=== PATIENT | male | born 1965 | race Caucasian/White ===

== ENCOUNTER 2020-05-04 16:11 | Outpatient (REF) | payer BC, SELFPAY ==
[2020-05-04 18:11] LABS: Carbamazepine Tegretol 4.5 mcg/mL (5.0-12.0)
== END 2020-05-04 16:12 | disposition home or self-care (01) ==
LOC: HO.LAB 16:11
PROVIDERS: Visit Provider Psychiatry & Neurology Neurology
DX: G40.209 Localization-related (focal) (partial) symptomatic epilepsy and epileptic syndromes with complex partial seizures, not intractable, without status epilepticus (principal)
CPT/HCPCS: 80156

== ENCOUNTER 2021-05-05 16:53 | Outpatient (REF) | payer BC, SELFPAY ==
[2021-05-05 17:06] LABS: MANUAL DIFF FLAG NO
[2021-05-05 18:17] LABS: Anion Gap 12 (12-20); Carbon Dioxide 26 mmol/L (22-29); Chloride 109 mmol/L (96-108); Potassium 4.6 mmol/L (3.3-5.1); Sodium 142 mmol/L (135-145)
[2021-05-05 18:31] LABS: Basophils Percent Auto 0.4 % (0-2); Eosinophils Absolute Auto 0.1 X10*3/uL (0.0-0.4); Hematocrit 42.3 % (42-52); Hemoglobin 15.1 g/dl (14.0-18.0); Imm Gran Abs Auto 0.02 X10*3/uL (0.00-0.03); Imm Gran Pct Auto 0.4 % (0.0-0.4); Lymphocytes Absolute Auto 0.9 X10*3/uL (1.2-4.9); Lymphocytes Percent Auto 18.9 % (20-40); Mean Corpuscular HGB Conc 35.7 g/dl (31.0-36.0); Mean Corpuscular Hemoglobin 32.5 pg (27.0-33.0); Mean Platelet Volume 9.8 fL (9.4-12.4); Monocytes Absolute Auto 0.4 X10*3/uL (0.1-1.2); Monocytes Percent Auto 7.4 % (2-11); Neutrophils Absolute Auto 3.3 X10*3/uL (2.0-8.3); Neutrophils Percent Auto 69.9 % (45-73); Platelet Count 164 X10*3/uL (160-400); Red Blood Count 4.65 X10*6/uL (4.60-5.80); Red Cell Distribution Width 11.8 % (11.0-16.0); White Blood Count 4.7 X10*3/uL (4.8-10.8)
[2021-05-05 18:38] LABS: Carbamazepine Tegretol 7.5 mcg/mL (5.0-12.0)
== END 2021-05-05 16:54 | disposition home or self-care (01) ==
LOC: HO.LAB 16:53
PROVIDERS: Visit Provider Psychiatry & Neurology Neurology
DX: G40.209 Localization-related (focal) (partial) symptomatic epilepsy and epileptic syndromes with complex partial seizures, not intractable, without status epilepticus (principal)
CPT/HCPCS: 36415; 80051; 80156; 85025

== ENCOUNTER 2025-02-10 11:14 | Outpatient (AMB) | payer OTHER, SELFPAY ==
--- NOTE | 2025-02-10 11:17 | A.OFFVIS_ITS ---
Intake Visit Reasons: 6 month f/u Allergies No Known Allergies Allergy (Verified 02/08/25 11:28) Medication List - Last Reconciled 02/10/25 by Dominic Rainey MD acetaminophen ER (Pain Relief (acetaminophen)) 650 mg PO Q8H amlodipine-benazepril 10-20 mg 1 cap PO DAILY atorvastatin 80 mg PO DAILY carbamazepine 300 mg PO TID gabapentin 300 mg PO TID melatonin 10 mg PO BEDTIME PRN omeprazole 20 mg PO DAILY primidone 50 mg PO BID sertraline 100 mg PO DAILY warfarin 10 - 12.5 mg PO DAILY HPI Comments Details: 2. 3. This is a 59-year-old man with a history of stroke, seizures, DVT and tremors. No Sz or stroke like Sx. Balance is poor but no falls. Uses a walker outside. Tremors are about the same or at times a bit worse.. Notices tremors when eating or drinking, that can cause functional impairmen, also with writing.. No difficulty swallowing. Woke with low back pain and right leg weakness after repetitive yard work in mid-11/2023, seen at [facility]. Following with [facility]. Had a hip inj a week ago that seems to have relieved the pain. Had a left calf DVT .? Admitted to [facility] on 01/10/2023 for stroke-like symptoms with slurred speech, f acial droop, left hemiparesis, and had thrombectomy. Last seizure 04/25/2021, was looking in mirror and lost bladder control, did not pass out. Seizure 01/05/2020 without warning, turned white, no tongue bite or incontinence, came to in chair. Seizure 09/2015. Hit curb and on another occasion unplowed snow without damage to car. One was early night and other was early month. Hz of seizures diagnosed at age 21 (1985), well controlled with CBZ. Stopped CBZ in , restarted. Spells with tremendous sense of fear daily. Noted to stare during it, some caressing of knee, does not respond. Sometimes he sees like a video with sense of fear. 01/15 EEG WNL 05/01/21 Teg 7.5 MRI Brain at [facility] 01/13/2023: R MCA territory infarction, most confluent in the R basal ganglia with associated hemorrhagic conversion. There is partial effacement of the R lateral ventricle, but no midline shift. [facility] Medical History (Updated 02/10/25 @ 11:39 by Dominic Rainey MD) Benign familial tremor Stroke Complex partial seizures Review of Systems Const Details: General/Constitutional:? Change in appetitedenies.? Chillsdenies.? Fatiguedenies.? Feverdenies.? Weight gaindenies.? Weight lossdenies. ???Sleep:? Difficulty getting to sleepdenies.? Difficulty maintaining sleepadmits.? Urge to move legsdenies.? Teeth grindingdenies.? Shouting or Kicking during sleep denies.? Abnormal behavior during sleepdenies.? Excessive sleepdenies.? Snoring denies.? Daytime sleepinessdenies. ???Respiratory:? Shortness of breathdenies.? Chest paindenies.? Coughdenies. ???Cardiovascular:? Chest pain at restdenies.? Chest pain with exertiondenies.? Claudicationdenies .? Dizzinessdenies.? Fluid accumulation in the legsdenies.? Irregular heartbeat denies.? Palpitationsdenies. ???Gastrointestinal:? Abdominal paindenies.? Constipationdenies.? Diarrheadenies.? Difficulty swallowingdenies.? Heartburndenies.? Nauseadenies.? Rectal bleedingdenies. ???Genitourinary:? Frequent urinationdenies.? Urgencydenies.? Incontinencedenies.? Erectile Dysfunctiondenies. ???Musculoskeletal:? Neck paindenies.? Back paindenies.? Muscle achesdenies.? Painful jointsdenies.? Sciaticadenies.? Weaknessdenies. ???Neurologic:? Difficulty swallowingdenies.? Balance difficultydenies.? Coordinationnormal.? Difficulty speakingdenies.? Dizzinessdenies.? Faintingdenies.? Gait abnormality denies.? Headachedenies.? Loss of strengthdenies.? Loss of use of extremity denies.? Low back paindenies.? Memory lossdenies.? Seizuresadmits.? Ticsdenies.? Tingling/Numbnessdenies.? Transient loss of visiondenies.? Tremoradmits. ???Psychiatric:? Anxietydenies.? Auditory/visual hallucinationsdenies.? Delusionsdenies.? Depressed moodadmits.? Stressorsdenies.? Substance abusedenies.? Suicidal thoughtsdenies. Physical Exam Neuro Other: Neurological: Abnormal neurological findings:??slight left facial angle of mouth droop . Subtle left pronation drift. Left side 5-/5. Slight slow speech. Minimal left hand tremor on finger to nose only, not on sustained pressure. Walking with walker.?Mental Status:??alert and oriented X 3,?Normal attention, orientation, memory and affect.?Cranial Nerves:??Pupils are equal, round and reactive to light. Fundoscopy shows normal disc bilaterally. External occular muscles are intact. Visual mo are full, no ptosis. Face is asymmetrical, left facial weakness/ droop. Facial sensations are normal. Tongue protrudes in midline. Palate elevates symmetrically. Shoulder shrugging is normal..?Motor Examination:??Normal muscle tone, bulk and strength,?No atrophy or fasciculations,?No drift of the extended upper extremities,?Deep tendon reflexes are 2+?,?Plantars are flexor?.?Straight Leg Raising:??90 degrees.?Sensory Exam:??Normal light touch, temperature, pinprick, vibration and joint-position sensations?,?Rhomberg sign is absent.?Coordination:??no ataxia,?no titubation,?tmvpcl-ra-jbnj, rdqd-znnh-rqya test and rapid alternating movements were normal.?Gait Exam:??walking with walker.?Cerebellar Signs:??Vigfgt-vw-ylyq and enkw-nf-xawp is normal,?no dysdiadochokinesia?.?Extrapyramidal Syste m:??Tremor as above, no?rigidity with normal facial expressions,?No bradykinesia, no bradyphrenia. Normal arm swing and posture. No propulsion or retropulsion.?Speech:??Normal,?no dysphasia or dysarthria..? Mini Mental Status Exam: Level of Consciousness:??Alert.?Orientation:??Knows correct year, month, date, day and season,?Knows correct city, county and state. Knows correct location and floor.?Registration:??Able to register 3 objects.?Attention:??Serial 7's performed accurately.?Recall:??Able to recall 3 out of 3 objects.?Language:??Normal spontaneous speech, fluency, repetition,naming, comprehension, reading and writing.?Total Score:??30/30.? General Examination: GENERAL APPEARANCE:??normal,?in no acute distress.?HEART:??S1, S2 normal,?no murmurs.?LUNGS:??clear anteriorly and posteriorly.?MUSCULOSKELETAL:??normal.?EXTREMITIES:??no edema.?PSYCH:??alert, oriented,?cognitive function intact,?cooperative with exam.? Assessment & Plan Assessment & Plan (1) Complex partial seizures: Code(s): G40.209 - Localization-related (focal) (partial) symptomatic epilepsy and epileptic syndromes with complex partial seizures, not intractable, without status epilepticus Category: Medical (2) Stroke: Code(s): I63.9 - Cerebral infarction, unspecified Category: Medical (3) Benign familial tremor: Code(s): G25.0 - Essential tremor Category: Medical Plan Continue carbamazepine. Will stop Primidone to see if it is helping the tremor. Medications: New carbamazepine 300 mg (1.5 x 200 mg) PO TID 405 tabs 3RF 90 days Coding Level of Care Code Est Pt Level 4 (22873) Diagnoses Complex partial seizures G40.209 Stroke I63.9 Benign familial tremor G25.0
--- OUTSIDE RECORDS SUMMARY | 2025-02-10 12:06 | XMS_ITS | Clinical Summary ---
Author Organization [facility] it Address [address] [place] [address] Care Team Providers Care Wall Covering Installer Name Role Phone Unavailable Primary Care Provider Unavailabl e Encounters Date Type Department Care Team Description 12/24/2024 Telephone Gastroenterology - [address] [place] [address] Frederic Camejo MD from Last 3 Months Social History Tobacco Use Types Packs/Day Years Used Date Smoking Tobacco: Never Assessed Sex and Gender Information Value Date Recorded Sex Assigned at Not on file Legal Sex Male 9:05 PM EST Gender Identity Not on file Sexual Orientation Not on file Plan of Treatment Health Maintenance Due Date Last Done Comments DTaP,Tdap,and Td Vaccines (1 - Tdap) 1985 Hepatitis B Vaccines (1 of 3 - 19+ 3-dose series) 1985 Pneumococcal Vaccine: 50+ Ye ars (1 of 1 - PCV) 2016 Zoster Vaccines (1 of 2) 2016 Cholesterol Screening (Lipid Panel) 06/30/2022 Colorectal Cancer Screening: Colonoscopy 06/30/2022 HIV Screening 06/30/2022 Hepatitis C Screening 06/30/2022 Social Influencers of Health Screening 06/30/2022 COVID-19 Vaccine (1 - 2023-2 5 season) 2024 Depression Screening 07/29/2024 Influenza Vaccine (#1) 2025 HIB Vaccines Aged Out No longer eligi ble based on patient's age to complete this topic HPV Vaccines Aged Out No longer eligi ble based on patient's age to complete this topic Hepatitis A Vaccines Aged Out No long er eligible based on patient's age to complete this topic IPV Vaccines Aged Out No longer eligi ble based on patient's age to complete this topic MMR Vaccines Aged Out No longer eligi ble based on patient's age to complete this topic Meningococcal ACWY Vaccine Aged Out N o longer eligible based on patient's age to complete this topic Meningococcal B Vaccine Aged Out No l onger eligible based on patient's age to complete this topic RSV Immunization Patients Un elena 20 months Aged Out No longer eligible b ased on patient's age to complete this topic Varicella Vaccines Aged Out No longer eligible based on patient's age to complete this topic
== END 2025-02-10 11:45 | disposition home or self-care (01) ==
LOC: HO.HSM 11:14
PROVIDERS: PCP Family Medicine; Visit Provider Psychiatry & Neurology Neurology
DX: G40.209 Localization-related (focal) (partial) symptomatic epilepsy and epileptic syndromes with complex partial seizures, not intractable, without status epilepticus (principal); I63.9 Cerebral infarction, unspecified; G25.0 Essential tremor
CPT/HCPCS: 99214

== ENCOUNTER 2025-07-20 13:28 | Outpatient (AMB) | payer OTHER, SELFPAY ==
--- OUTSIDE RECORDS SUMMARY | 2025-04-12 06:00 | XMS_ITS ---
Author Organization Leanne Pittman MD Address [address] [address] Care Team Providers Care Counter Help Name Role Phone Leanne Pittman Unavailable [phone] REASON FOR VISIT EARLENE [facility], Encounters Encounter Location Date Provider Diagnosis Leanne Pittman MD [address] [address] 04/12/2025 Leanne Pittman Plan Of Treatment No Information Progress Notes * ROMIE NORTONOB:1965 ( 60 yo M)Acc No.[id number]:04/12/2025 EARLENE Patient: EVITA REYNAGA Provider: Osorio Pittman MD :1965 A ge:59 Y S ex:Male Date:04/12/2025 Phone: Address:[address] [place], [place] [id number] Subjective: * Chief Complaints: * I ME [facility], * Electronic signature of Leanne Pittman MD on 07/20/2025 at 02:35 PM EST Sign off status: Pending * Provider: Osorio Pittman MD Date: 0 04/12/2025 Generated for Joani luis/Andre/eTransmitting on: 1 09/20/2024 02:35 PM EST
--- NOTE | 2025-07-20 13:46 | MHC.OFFVIS ---
Intake Visit Reasons: sz Allergies No Known Allergies Allergy (Verified 02/08/25 11:28) Medication List - Last Reconciled 07/20/25 by Dominic Rainey MD acetaminophen ER (Pain Relief (acetaminophen)) 650 mg PO Q8H amlodipine-olmesartan 5-20 mg 1 tab PO DAILY atorvastatin 80 mg PO DAILY carbamazepine 300 mg (1.5 x 200 mg) PO TID 90 days gabapentin 300 mg PO TID melatonin 10 mg PO BEDTIME PRN omeprazole 20 mg PO DAILY primidone 50 mg PO BID 90 days sertraline 150 mg PO DAILY warfarin 10 - 12.5 mg PO DAILY HPI Comments Details: This is a 59-year-old man with a history of stroke, seizures, DVT and tremors. No Sz or stroke like Sx. Balance is poor but no falls. Uses a walker outside. Feels verytired. Tremors are about the same or at times a bit worse.. Notices tremors when eating or drinking, that can cause functional impairment, also with writing.. No difficulty swallowing. Woke with low back pain and right leg weakness after repetitive yard work in mid-11/2023, seen at [facility]. Following with [facility]. Had a hip inj a week ago that seems to have relieved the pain. Had a left calf DVT .? Admitted to [facility] on 01/10/2023 for stroke-like symptoms with slurred speech, facial droop, left hemiparesis, and had thrombectomy. Last seizure 04/25/2021, was looking in mirror and lost bladder control, did not pass out. Seizure 01/05/2020 without warning, turned white, no tongue bite or incontinence, came to in chair. Seizure 09/2015. Hit curb and on another occasion unplowed snow without damage to car. One was early night and other was early month. Hz of seizures diagnosed at age 21 (1985), well controlled with CBZ. Stopped CBZ in , restarted. Spells with tremendous sense of fear daily. Noted to stare during it, some caressing of knee, does not respond. Sometimes he sees like a video with sense of fear. 01/15 EEG WN 05/01/21 Teg 7.5 MRI Brain at [facility] 01/13/2023: R MCA territory infarction, most confluent in the R basal ganglia with associated hemorrhagic conversion. There is partial effacement of the R lateral ventricle, but no midline shift. [facility] Medical History (Updated 02/10/25 @ 11:39 by Dominic Rainey MD) Benign familial tremor Stroke Complex partial seizures Review of Systems Const Details: General/Constitutional:? Change in appetitedenies.? Chillsdenies.? Fatiguedenies.? Feverdenies.? Weight gaindenies.? Weight lossdenies. ???Sleep:? Difficulty getting to sleepdenies.? Difficulty maintaining sleepadmits.? Urge to move legsdenies.? Teeth grindingdenies.? Shouting or Kicking during sleepdenies.? Abnormal behavior during sleepdenies.? Excessive sleepdenies.? Snoringdenies.? Daytime sleepinessdenies. ???Respiratory:? Shortness of breathdenies.? Chest paindenies.? Coughdenies. ???Cardiovascular:? Chest pain at restdenies.? Chest pain with exertiondenies.? Claudicationdenies.? Dizzinessdenies.? Fluid accumulation in the legsdenies.? Irregular heartbeatdenies.? Palpitationsdenies. ???Gastrointestinal:? Abdominal paindenies.? Constipationdenies.? Diarrheadenies.? Difficulty swallowingdenies.? Heartburndenies.? Nauseadenies.? Rectal bleedingdenies. ???Genitourinary:? Frequent urinationdenies.? Urgencydenies.? Incontinencedenies.? Erectile Dysfunctiondenies. ???Musculoskeletal:? Neck paindenies.? Back paindenies.? Muscle achesdenies.? Painful jointsdenies.? Sciaticadenies.? Weaknessdenies. ???Neurologic:? Difficulty swallowingdenies.? Balance difficultydenies.? Coordinationnormal.? Difficulty speakingdenies.? Dizzinessdenies.? Faintingdenies.? Gait abnormalitydenies.? Headachedenies.? Loss of strengthdenies.? Loss of use of extremitydenies.? Low back paindenies.? Memory lossdenies.? Seizuresadmits.? Ticsdenies.? Tingling/Numbnessdenies.? Transient loss of visiondenies.? Tremoradmits. ???Psychiatric:? Anxietydenies.? Auditory/visual hallucinationsdenies.? Delusionsdenies.? Depressed moodadmits.? Stressorsdenies.? Substance abusedenies.? Suicidal thoughtsdenies. Physical Exam Neuro Other: Neurological: Abnormal neurological findings:??slight left facial angle of mouth droop . Subtle left pronation drift. Left side 5-/5. Slight slow speech. Minimal left hand tremor on finger to nose only, not on sustained pressure. Walking with walker.?Mental Status:??alert and oriented X 3,?Normal attention, orientation, memory and affect.?Cranial Nerves:??Pupils are equal, round and reactive to light. Fundoscopy shows normal disc bilaterally. External occular muscles are intact. Visual mo are full, no ptosis. Face is asymmetrical, left facial weakness/ droop. Facial sensations are normal. Tongue protrudes in midline. Palate elevates symmetrically. Shoulder shrugging is normal..?Motor Examination:??Normal muscle tone, bulk and strength,?No atrophy or fasciculations,?No drift of the extended upper extremities,?Deep tendon reflexes are 2+?,?Plantars are flexor?.?Straight Leg Raising:??90 degrees.?Sensory Exam:??Normal light touch, temperature, pinprick, vibration and joint-position sensations?,?Rhomberg sign is absent.?Coordination:??no ataxia,?no titubation,?vuaabx-ib-uboc, rhpo-nzpp-mgli test and rapid alternating movements were normal.?Gait Exam:??walking with walker.?Cerebellar Signs:??Nudhou-is-mzgz and jvfa-mi-jbab is normal,?no dysdiadochokinesia?.?Extrapyramidal System:??Tremor as above, no?rigidity with normal facial expressions,?No bradykinesia, no bradyphrenia. Normal arm swing and posture. No propulsion or retropulsion.?Speech:??Normal,?no dysphasia or dysarthria..? Mini Mental Status Exam: Level of Consciousness:??Alert.?Orientation:??Knows correct year, month, date, day and season,?Knows correct city, county and state. Knows correct location and floor.?Registration:??Able to register 3 objects.?Attention:??Serial 7's performed accurately.?Recall:??Able to recall 3 out of 3 objects.?Language:??Normal spontaneous speech, fluency, repetition,naming, comprehension, reading and writing.?Total Score:??30/30.? General Examination: GENERAL APPEARANCE:??normal,?in no acute distress.?HEART:??S1, S2 normal,?no murmurs.?LUNGS:??clear anteriorly and posteriorly.?MUSCULOSKELETAL:??normal.?EXTREMITIES:??no edema.?PSYCH:??alert, oriented,?cognitive function intact,?cooperative with exam.? Assessment & Plan Assessment & Plan (1) Complex partial seizures: Code(s): G40.209 - Localization-related (focal) (partial) symptomatic epilepsy and epileptic syndromes with complex partial seizures, not intractable, without status epilepticus Category: Medical (2) Stroke: Code(s): I63.9 - Cerebral infarction, unspecified Category: Medical (3) Benign familial tremor: Code(s): G25.0 - Essential tremor Category: Medical Plan MRI brain to evaluate worsening balance. Continue carbamazepine and Primidone. Orders: Orders MR head/brain wo con 4 Weeks G40.209 - Localization-related (focal) (partial) symptomatic epilepsy and epileptic syndromes with complex partial seizures, not intractable, without status epilepticus, I63.9 - Cerebral infarction, unspecified Coding Level of Care Code Est Pt Level 4 (65841) Diagnoses Complex partial seizures G40.209 Stroke I63.9 Benign familial tremor G25.0
--- OUTSIDE RECORDS SUMMARY | 2025-07-20 14:36 | XMS_ITS | Patient Health Record ---
Author Organization Leanne Pittman MD Address [address] [facility] [address] [place] [address] Care Team Providers Care Non Destructive Evaluation Technician Name Role Phone Leanne Pittman Unavailable [phone] Reason For Referral No Information Encounters Encounter Location Date Provider Diagnosis Leanne Pittman MD [address] [facility] [address] [place] [address] 04/12/2025 Leanne Pittman Plan Of Treatment No Information
--- OUTSIDE RECORDS SUMMARY | 2025-07-20 14:36 | XMS_ITS | Clinical Summary ---
Author Organization [facility] Address [address] [place] [address] Care Team Providers Care Editorial Assistant Name Role Phone Unavailable Primary Care Provider Unavailabl e Social History Tobacco Use Types Packs/Day Years Used Date Smoking Tobacco: Never Assessed Sex and Gender Information Value Date Recorded Sex Assigned at Not on file Legal Sex Male 9:05 PM EST Gender Identity Not on file Sexual Orientation Not on file Plan of Treatment Health Maintenance Due Date Last Done Comments Colorectal Cancer Screening: Colonoscopy 1966 DTaP,Tdap,and Td Vaccines (1 - Tdap) 1985 Hepatitis B Vaccines (1 of 3 - 19+ 3-dose series) 1985 Pneumococcal Vaccine: 50+ Ye ars (1 of 1 - PCV) 2016 Zoster Vaccines (1 of 2) 2016 Cholesterol Screening (Lipid Panel) 06/30/2022 HIV Screening 06/30/2022 Hepatitis C Screening 06/30/2022 Social Influencers of Health Screening 06/30/2022 Depression Screening 07/29/2024 COVID-19 Vaccine (1 - 2024-2 6 season) 2025 Influenza Vaccine (#1) 2025 RSV Immunization Adult Patie nts (1 - 1-dose 75+ series) 2041 HIB Vaccines Aged Out No longer eligi [...]
== END 2025-07-20 14:00 | disposition home or self-care (01) ==
LOC: HO.HSM 13:29
PROVIDERS: PCP Family Medicine; Visit Provider Psychiatry & Neurology Neurology
DX: G40.209 Localization-related (focal) (partial) symptomatic epilepsy and epileptic syndromes with complex partial seizures, not intractable, without status epilepticus (principal); I63.9 Cerebral infarction, unspecified; G25.0 Essential tremor
CPT/HCPCS: 99214